=== PATIENT | male | born 1970 | race American Indian/Alaskan Native ===

== ENCOUNTER 2017-05-24 11:35 | Emergency (ER) | payer MEDICARE ==
[2017-05-24 12:28] LABS: Basophils % (Auto) 0.9 % (0.0-1.8); Eosinophils % (Auto) 5.2 % (0.0-4.3); Hematocrit 45.7 % (35.5-45.6); Hemoglobin 15.1 gm/dl (11.8-15.2); Mean Corpuscular HGB Conc 33 % (32-34); Mean Corpuscular Hemoglobin 31 pg (28-32); Mean Corpuscular Volume 93 fl (84-94); Platelet Count 209 K/mm3 (140-440); Red Cell Distribution Width 14.7 % (13.2-15.2); White Blood Count 5.8 K/mm3 (4.5-11.0)
--- NOTE | 2017-05-24 12:31 | Emergency Department Report ---
ED Chest Pain HPI - General Chief Complaint: Chest Pain Stated Complaint: CHEST PAIN Time Seen by Provider: 05/24/17 12:04 Source: patient Mode of arrival: Stretcher Limitations: No Limitations - History of Present Illness Initial Comments: This is a 47 year-old male who presents to the emergency department by EMS from [place] with a complaint of some intermittent left- sided sharp chest pains that started earlier while he was at the vending machine. He said that the pain worsened when he was trying to do inspiration. He was given some aspirin in route by EMS. He currently says that he is feeling much better. No recent travel or known sick contacts at home or have [facility]. He has a history of HIV. He is a tobacco smoker but denies any illicit drug use or abuse. He has a history of bipolar disorder. He does not currently have a primary care physician. Severity scale (0 -10): 10 - Related Data Home Medications Medication Instructions Recorded Confirmed Last Taken Abilify 45 mg PO DAILY 05/24/17 05/24/17 Unknown Crestor 10 mg PO DAILY 05/24/17 05/24/17 Unknown Effexor 300 mg PO DAILY 05/24/17 05/24/17 Unknown Triumeq Tablet 600 mg PO DAILY 05/24/17 05/24/17 Unknown traZODone 200 mg PO HS 05/24/17 05/24/17 Unknown Allergies Allergy/AdvReac Type Severity Reaction Status Date / Time Sulfa (Sulfonamide Allergy Rash Verified 05/24/17 11:49 Antibiotics) Heart Score - HEART Score History: Slightly suspicious EKG: Non-specific Age: 45-65 Risk factors: 1-2 risk factors Troponin: < normal limit HEART Score: 3 - Critical Actions Critical Actions: 0-3 pts:0.9-1.7%risk of adverse cardiac event.Candidate for discharge ED Review of Systems ROS: Stated complaint: CHEST PAIN Other details as noted in HPI Comment: All other systems reviewed and negative Constitutional: denies: chills, fever Eyes: denies: eye pain, eye discharge, vision change ENT: denies: ear pain, throat pain Respiratory: denies: cough, wheezing Cardiovascular: chest pain. denies: palpitations Gastrointestinal: denies: abdominal pain, nausea, diarrhea Genitourinary: denies: urgency, dysuria Musculoskeletal: denies: back pain, joint swelling, arthralgia Skin: denies: rash, lesions Neurological: denies: headache, weakness, paresthesias ED Past Medical Hx - Past Medical History Hx Psychiatric Treatment: Yes (bipolar) Hx HIV: Yes - Surgical History Past Surgical History?: No - Social History Smoking Status: Current Every Day Smoker Substance Use Type: None - Medications Home Medications: Home Medications Medication Instructions Recorded Confirmed Last Taken Type Abilify 45 mg PO DAILY 05/24/17 05/24/17 Unknown History Crestor 10 mg PO DAILY 05/24/17 05/24/17 Unknown History Effexor 300 mg PO DAILY 05/24/17 05/24/17 Unknown History Triumeq Tablet 600 mg PO DAILY 05/24/17 05/24/17 Unknown History traZODone 200 mg PO HS 05/24/17 05/24/17 Unknown History ED Physical Exam - General Limitations: No Limitations - Other Other exam information: GENERAL: The patient is well-developed well-nourished. HENT: Normocephalic. Atraumatic. Patient has moist mucous membranes. EYES: Extraocular motions are intact. Pupils equal reactive to light bilaterally. NECK: Supple. Trachea is midline. CHEST/LUNGS: Clear to auscultation. There is no respiratory distress noted. HEART/CARDIOVASCULAR: Regular. There is no tachycardia. There is no gallop rub or murmur. ABDOMEN: Abdomen is soft, nontender. Patient has normal bowel sounds. There is no abdominal distention. SKIN: Skin is warm and dry. NEURO: The patient is awake, alert, and oriented. The patient is cooperative. The patient has no focal neurologic deficits. The patient has normal speech. MUSCULOSKELETAL: There is no tenderness or deformity. There is no limitation range of motion. There is no evidence of acute injury. ED Course Vital Signs 05/24/17 05/24/17 11:50 13:46 Temperature 98 F Pulse Rate 73 74 Respiratory 16 16 Rate Blood Pressure 115/74 Blood Pressure 126/76 [Left] O2 Sat by Pulse 97 95 Oximetry SHAHRAM score - Shahram Score Age > 65: (0) No Aspirin use within the Past 7 Days: (0) No 3 or more CAD Risk Factors: (0) No 2 or more Angina events in past 24 hrs: (0) No Known CAD with more than 50% Stenosis: (0) No Elevated Cardiac Markers: (0) No ST Deviation Greater than 0.5mm: (0) No SHAHRAM Score: 0 ED Medical Decision Making - Lab Data Result diagrams: 05/24/17 12:12 05/24/17 12:12 - EKG Data -: EKG Interpreted by Me EKG shows normal: sinus rhythm, axis, intervals (prolonged WA interval), QRS complexes, ST-T waves (nonspecific ST-T waves) Rate: normal - EKG Data When compared to previous EKG there are: previous EKG unavailable Interpretation: other (sinus rhythm, prolonged WA interval, nonspecific ST-T wave, no ST elevation OH) - Radiology Data Radiology results: image reviewed CHEST TWO VIEWS: 05/24/17 11:35:00 CLINICAL: Chest pain. COMPARISON: None FINDINGS: 2 noncalcified left lower lobe lung nodules and at least one right lower lung nodule. No airspace disease or pleural effusion. Normal heart and pulmonary vessels. Scoliosis but otherwise unremarkable bones. IMPRESSION: Bilateral lung nodules suspicious for metastatic disease. Transcribed By: REF Dictated By: XIN OVALLES MD Electronically Authenticated By: XIN OVALLES MD Signed Date/Time: 05/24/17 3830 - Medical Decision Making The patient originally came in after he had some sharp left sided chest pains that began prior to presentation but they pretty much resolved by the time I have seen him in the emergency department. His EKG does not show any signs of ST elevation [place], or dysrhythmia. Labs are mostly unremarkable including negative troponins 2 and a negative d-dimer. His only risk factor for coronary artery disease is in his tobacco use. He is low on the heart score criteria and has a SHAHRAM score of 0. The chest x-ray showed 2 lower lung but bilateral pulmonary nodules and radiology read it as concern for some type of malignancy or metastatic disease. Spoke with patient about having a CT of the chest done to further evaluate this. The patient says that he knows about these pulmonary nodules and has been following them since about 2009 and he has a slicing machine tender specifically for this. For this reason he does not want the CT of the chest done and says he will follow-up with his slicing machine tender and primary care physician. Otherwise the patient is currently asymptomatic and has had a relatively negative workup appears safe for discharge home at this time. He will be returned back to [place]. He was given a referral for cardiology. He will return to the ER with any worsening of symptoms or any acute distress. Discharge instructions were given in the department and all questions have been answered. - Differential Diagnosis OH, PE, Costochondritis, Pneumonia Critical Care Time: No Critical care attestation.: If time is entered above; I have spent that time in minutes in the direct care of this critically ill patient, excluding procedure time. ED Disposition Clinical Impression: Intermittent chest pain, Pulmonary nodules Disposition: TO HOME OR SELFCARE Is pt being admited?: No Condition: Stable Instructions: Chest Pain (ED), Pulmonary Nodules (ED) Additional Instructions: Please follow-up with your primary care physician and/or slicing machine tender once you are able to do so. I've given you a referral for a local front end assistant, Dr. Laws, in order to follow-up regarding your previous chest pain. Return to the emergency Department with any worsening of your symptoms or any acute distress. Referrals: SURESH HERNANDES MD [Primary Care Provider] - 3-5 Days ANKIT LAWS MD [Staff Physician] - 3-5 Days Time of Disposition: 16:01
[2017-05-24 12:44] LABS: Anion Gap 17 mmol/L; BUN/Creatinine Ratio 9; Blood Urea Nitrogen 13 mg/dL (9-20); Calcium 9.1 mg/dL (8.4-10.2); Carbon Dioxide 27 mmol/L (22-30); Chloride 100.3 mmol/L (98-107); Glucose 91 mg/dL (75-100); Potassium 4.4 mmol/L (3.6-5.0); Sodium 140 mmol/L (137-145)
--- NOTE | 2017-05-24 13:12 | XRay Report ---
CHEST TWO VIEWS: 05/24/17 11:35:00 CLINICAL: Chest pain. COMPARISON: None FINDINGS: 2 noncalcified left lower lobe lung nodules and at least one right lower lung nodule. No airspace disease or pleural effusion. Normal heart and pulmonary vessels. Scoliosis but otherwise unremarkable bones. IMPRESSION: Bilateral lung nodules suspicious for metastatic disease.
[2017-05-24] MEDS ORDERED: NACL ONE (13:33)
[2017-05-24 17:00] VITALS: BP 124/81
== END 2017-05-24 17:04 | disposition home or self-care (01) ==
LOC: ED 11:35
DX: R07.9 Chest pain, unspecified (principal); J98.4 Other disorders of lung; F31.9 Bipolar disorder, unspecified; F17.200 Nicotine dependence, unspecified, uncomplicated
CPT/HCPCS: 36415; 71020; 80048; 84484; 85025; 85379; 93005; 93010

== ENCOUNTER 2020-06-03 02:08 | Emergency (ER) | payer MEDICARE ==
[2020-06-03 04:10] VITALS: BP 141/83
[2020-06-03 04:40] LABS: Basophils % (Auto) 0.6 % (0.0-1.8); Eosinophils # (Auto) 0.5 K/mm3 (0.0-0.4); Eosinophils % (Auto) 6.8 % (0.0-4.3); Hematocrit 37.6 % (35.5-45.6); Hemoglobin 13.2 gm/dl (11.8-15.2); Lymphocytes # (Auto) 2.1 K/mm3 (1.2-5.4); Lymphocytes % (Auto) 27.4 % (13.4-35.0); Mean Corpuscular HGB Conc 35 % (32-34); Mean Corpuscular Volume 90 fl (84-94); Monocytes # (Auto) 0.9 K/mm3 (0.0-0.8); Monocytes % (Auto) 12.4 % (0.0-7.3); Platelet Count 212 K/mm3 (140-440); Red Blood Count 4.18 M/mm3 (3.65-5.03); Red Cell Distribution Width 15.4 % (13.2-15.2)
[2020-06-03 05:03] LABS: Alanine Aminotransferase 34 units/L (7-56); Albumin 4.2 g/dL (3.9-5); BUN/Creatinine Ratio 8; Blood Urea Nitrogen 12 mg/dL (9-20); Calcium 9.1 mg/dL (8.4-10.2); Hemolysis Index 11
== END 2020-06-03 04:30 | disposition left against medical advice (07) ==
LOC: ED 02:08
DX: R10.9 Unspecified abdominal pain (principal); Z53.21 Procedure and treatment not carried out due to patient leaving prior to being seen by health care provider
CPT/HCPCS: 36415; 80053; 85025